=== PATIENT | female | born 1975 | race African-American/Black ===

== ENCOUNTER 2018-03-26 17:00 | Emergency (ER) | payer MEDICAID ==
[~2018-03-26] VITALS: Ht 165.1 cm; Wt 93.2 kg
[~2018-03-26 17:00] MED LIST: CYCL10TA3 OR; KET10T PO
[2018-03-26 23:08] VITALS: BP 146/88
== END 2018-03-27 00:08 | disposition home or self-care (01) ==
LOC: ER 17:09
DX: N39.0 Urinary tract infection, site not specified (principal); J44.9 Chronic obstructive pulmonary disease, unspecified; Z88.8 Allergy status to other drugs, medicaments and biological substances; Z79.899 Other long term (current) drug therapy; Z90.710 Acquired absence of both cervix and uterus

== ENCOUNTER 2018-11-09 12:44 | Emergency (ER) | payer MEDICAID, OTHER ==
[~2018-11-09] VITALS: Ht 165.1 cm; Wt 77.1 kg
[2018-11-09 14:05] VITALS: BP 159/87
[2018-11-09] MEDS ORDERED: KETOROLAC TROMETH 60MG/2ML VIAL IM ONE (14:45)
== END 2018-11-09 15:20 | disposition home or self-care (01) ==
LOC: ER 12:44 → MERGE 12:44 → ER 15:20
DX: S46.911A Strain of unspecified muscle, fascia and tendon at shoulder and upper arm level, right arm, initial encounter (principal); S76.011A Strain of muscle, fascia and tendon of right hip, initial encounter; M19.90 Unspecified osteoarthritis, unspecified site; J45.909 Unspecified asthma, uncomplicated; E11.9 Type 2 diabetes mellitus without complications; Z88.8 Allergy status to other drugs, medicaments and biological substances; V03.90XA Pedestrian on foot injured in collision with car, pick-up truck or van, unspecified whether traffic or nontraffic accident, initial encounter; Y93.89 Activity, other specified; Y99.8 Other external cause status; Y92.89 Other specified places as the place of occurrence of the external cause
CPT/HCPCS: 81002; 81025; 82962; J1885

== ENCOUNTER 2018-11-28 10:57 | Emergency (ER) | payer MEDICAID ==
[~2018-11-28] VITALS: Ht 165.1 cm; Wt 90.7 kg
[2018-11-28 11:18] VITALS: BP 167/90
== END 2018-11-28 12:52 | disposition home or self-care (01) ==
LOC: ER 11:00
DX: M77.9 Enthesopathy, unspecified (principal); J44.9 Chronic obstructive pulmonary disease, unspecified; Z88.8 Allergy status to other drugs, medicaments and biological substances; X50.1XXA Overexertion from prolonged static or awkward postures, initial encounter; Y93.B9 Activity, other involving muscle strengthening exercises; Y92.89 Other specified places as the place of occurrence of the external cause; Y99.8 Other external cause status
CPT/HCPCS: 29125; 73130; 81025

== ENCOUNTER 2018-11-29 17:54 | Emergency (ER) | payer MEDICAID ==
[~2018-11-29] VITALS: Ht 165.1 cm; Wt 90.3 kg
[2018-11-29 18:14] VITALS: BP 157/78
[2018-11-29 18:45] LABS: Chloride 104 mmol/L (98-107); Potassium 3.9 mmol/L (3.5-5.1); Sodium 135 mmol/L (136-145)
[2018-11-29 18:48] LABS: Albumin 3.3 g/dL (3.4-5.0); Anion Gap 8 (5-15); Blood Urea Nitrogen 12 mg/dL (7-18); Calcium 8.9 mg/dL (8.5-10.1); Carbon Dioxide 23 mmol/L (21-32); Glucose 336 mg/dL (74-106); Magnesium 1.8 mg/dL (1.6-2.6)
[2018-11-29 18:53] LABS: Alanine Aminotransferase 22 U/L (13-56); Alkaline Phosphatase 131 U/L (45-117); Aspartate Aminotransferase 16 U/L (15-37); BUN/Creatinine Ratio 11.5; Bilirubin, Total 0.2 mg/dL (0.2-1.0); GFR African American 74 mL/min; GFR Non-African American 61 mL/min; Total Protein 7.9 g/dL (6.4-8.2)
[2018-11-29 19:09] LABS: Basophils # (auto) 0.1 uL; Lymphocytes # (auto) 2.2 uL; Lymphocytes % (auto) 21.3 % (10.0-50.0); Mean Corpuscular Volume 61.3 fL (80.0-100.0); Nucleated Red Blood Cells % 0.1 %
[2018-11-29 19:10] LABS: Basophils % (auto) 1.1 % (0.0-2.0); Eosinophils # (auto) 0.2 uL; Eosinophils % (auto) 2.1 % (0.0-7.0); Hematocrit 31.9 % (36.0-46.0); Hemoglobin 9.1 g/dL (12.2-16.2); Mean Corpuscular Hemoglobin 17.5 pg (28.0-32.0); Mean Corpuscular Hgb Conc. 28.5 g/dL (32.0-36.0); Monocytes # (auto) 0.7 uL; Monocytes % (auto) 6.8 % (0.0-12.0); Neutrophils # (auto) 7.2 uL; Neutrophils % (auto) 68.7 % (37.0-80.0); Platelet Count (auto) 162 10^3/uL (140-450); Red Cell Distribution Width 18.6 % (11.8-14.3); White Blood Cell 10.4 10^3/uL (4.4-10.8)
== END 2018-11-29 19:06 | disposition left against medical advice (07) ==
LOC: ER 17:57
DX: R07.9 Chest pain, unspecified (principal); Z53.21 Procedure and treatment not carried out due to patient leaving prior to being seen by health care provider
CPT/HCPCS: 36415; 71046; 80053; 83735; 84484; 85025; 93005